=== PATIENT | female | born 1985 | race Caucasian/White ===

== ENCOUNTER 2019-06-07 01:39 | Emergency (ER) | payer MEDICAID, OTHER ==
[~2019-06-07] VITALS: Ht 162.6 cm; Wt 59.0 kg
[2019-06-07] MEDS ORDERED: IBUPROFEN 600MG TABLET PO ONE (02:45)
[2019-06-07 04:55] VITALS: BP 129/75
== END 2019-06-07 04:57 | disposition home or self-care (01) ==
LOC: ER 01:39
DX: R05 Cough (principal); J06.9 Acute upper respiratory infection, unspecified; Z88.0 Allergy status to penicillin
CPT/HCPCS: 87070; 87430; 99283